=== PATIENT | female | born 1995 | race Asian ===

== ENCOUNTER 2017-08-15 18:16 | Observation (INO) | payer BC ==
[~2017-08-15] VITALS: Ht 157.5 cm; Wt 62.0 kg
[2017-08-15 19:04] LABS: BASOPHILS # (AUTO) 0.01 x10^3/uL (0-0.3); BASOPHILS % (AUTO) 0 % (0-1); EOSINOPHILS # (AUTO) 0.01 x10^3/uL (0-0.8); EOSINOPHILS % (AUTO) 0 % (1-7); LYMPHOCYTES # (AUTO) 1.65 x10^3/uL (1-6.1); LYMPHOCYTES % (AUTO) 22 % (22-44); MD NO; MEAN CORPUSCULAR HEMOGLOBIN 23.4 pg (27.0-34.8); MEAN CORPUSCULAR HGB CONC 31.6 g/dL (32.4-35.8); MEAN CORPUSCULAR VOLUME 74.1 fL (80-100); MEAN PLATELET VOLUME 10.5 fL (7.4-10.4); MONOCYTES # (AUTO) 0.53 x10^3/uL (0-1.4); MONOCYTES % (AUTO) 7 % (2-9); NEUTROPHILS # (AUTO) 5.31 x10^3/uL (1.8-8.0); NEUTROPHILS % (AUTO) 71 % (42-75); PLATELET COUNT 292 x10^3/uL (130-400); RED BLOOD COUNT 5.79 x10^6/uL (3.82-5.3); RED CELL DISTRIBUTION WIDTH 16.4 % (9.6-15.2)
[2017-08-15 19:09] LABS: MICROSCOPIC AUTO
[2017-08-15 19:16] LABS: ALANINE AMINOTRANSFERASE 14 U/L (12-78); ALBUMIN 4.3 g/dL (3.4-5.0); ANION GAP 9 mmol/L (5-15); CALCIUM 8.8 mg/dL (8.5-10.1); CHLORIDE 110 mmol/L (98-107); CREATININE 0.77 mg/dL (0.55-1.02)
[2017-08-15 19:17] LABS: SALICYLATE LEVEL < 1.7 mg/dL (2.8-20.0)
[2017-08-15 19:18] LABS: AMPHETAMINE SCREEN, URINE Negative (Negative); BARBITURATE SCREEN, URINE Negative (Negative); BENZODIAZEPINE SCREEN, URINE Negative (Negative); CANNABINOID SCREEN, URINE Positive (Negative); COCAINE SCREEN, URINE Negative (Negative); METHADONE SCREEN, URINE Negative (Negative); OPIATE SCREEN, URINE Negative (Negative)
[2017-08-15 19:19] LABS: ALKALINE PHOSPHATASE 41 U/L (45-117); BILIRUBIN,TOTAL 0.9 mg/dL (0.2-1.0); TOTAL PROTEIN 7.9 g/dL (6.4-8.2)
[2017-08-15 19:38] LABS: ACETAMINOPHEN < 2 mcg/mL (10-30)
[2017-08-15 19:38] LABS: CULTURE INDICATED? NO
[2017-08-15] MEDS ORDERED: SERT50TA PO (21:23)
[2017-08-15] MEDS ORDERED: BCP (21:23)
[2017-08-16] MEDS ORDERED: LORazepam 1MG TABLET PO PRN (00:30)
[2017-08-16] MEDS ORDERED: ONDANSETRON ODT 4 MG PO PRN (00:30)
[2017-08-16 00:56] LABS: TOTAL IRON BINDING CAPACITY 340 mcg/dL (250-450)
[2017-08-16 01:03] LABS: % IRON SATURATION 50 % (20-55); IRON LEVEL 171 mcg/dL (50-170)
[2017-08-16 07:30] VITALS: BP 109/68
[2017-08-16] MEDS ORDERED: SERTRALINE 50MG TABLET PO SCH (09:00)
[2017-08-16] MEDS ORDERED: SENNA/DOCUSATE TABLET PO SCH (09:00)
[2017-08-16] MEDS ORDERED: MICROGESTIN FE PO SCH (21:00)
== END 2017-08-16 11:45 ==
LOC: ED 22:17 → INTOOBSV 23:02 → EDIP 23:02 → 2N 08-16 01:19
PROVIDERS: ADMIT Hospitalist; ATTEND Hospitalist
DX: R45.851 Suicidal ideations (principal); F32.9 Major depressive disorder, single episode, unspecified; F41.9 Anxiety disorder, unspecified; F12.90 Cannabis use, unspecified, uncomplicated
CPT/HCPCS: 36415; 80053; 80307; 80329; 81001; 82728; 83540; 83550; 83690; 84702; 84703; 85025; 99285; G0378; G0480

== ENCOUNTER 2017-10-06 01:17 | Emergency (ER) | payer BC ==
[~2017-10-06] VITALS: Ht 157.5 cm; Wt 62.0 kg
[~2017-10-06 01:17] MED LIST: BCP; SERT50TA PO
[2017-10-06 03:39] LABS: BASOPHILS % (AUTO) 0 % (0-1); EOSINOPHILS # (AUTO) 0.01 x10^3/uL (0-0.8); EOSINOPHILS % (AUTO) 0 % (1-7); LYMPHOCYTES % (AUTO) 16 % (22-44); MD NO; MEAN CORPUSCULAR HEMOGLOBIN 23.5 pg (27.0-34.8); MEAN CORPUSCULAR HGB CONC 31.2 g/dL (32.4-35.8); MEAN CORPUSCULAR VOLUME 75.3 fL (80-100); MEAN PLATELET VOLUME 9.4 fL (7.4-10.4); MONOCYTES # (AUTO) 0.33 x10^3/uL (0-1.4); MONOCYTES % (AUTO) 5 % (2-9); NEUTROPHILS # (AUTO) 5.39 x10^3/uL (1.8-8.0); NEUTROPHILS % (AUTO) 79 % (42-75); PLATELET COUNT 289 x10^3/uL (130-400); RED BLOOD COUNT 5.13 x10^6/uL (3.82-5.3); RED CELL DISTRIBUTION WIDTH 16.6 % (9.6-15.2)
[2017-10-06 03:51] LABS: ALANINE AMINOTRANSFERASE 23 U/L (12-78); ALBUMIN 3.6 g/dL (3.4-5.0); ANION GAP 10 mmol/L (5-15); CALCIUM 7.3 mg/dL (8.5-10.1); CHLORIDE 113 mmol/L (98-107); CREATININE 0.85 mg/dL (0.55-1.02)
[2017-10-06 03:56] LABS: ALKALINE PHOSPHATASE 34 U/L (45-117); BILIRUBIN,TOTAL 0.3 mg/dL (0.2-1.0); TOTAL PROTEIN 6.9 g/dL (6.4-8.2)
[2017-10-06 05:38] LABS: AMPHETAMINE SCREEN, URINE Negative (Negative); BARBITURATE SCREEN, URINE Negative (Negative); BENZODIAZEPINE SCREEN, URINE Negative (Negative); CANNABINOID SCREEN, URINE Positive (Negative); COCAINE SCREEN, URINE Negative (Negative); METHADONE SCREEN, URINE Negative (Negative); OPIATE SCREEN, URINE Negative (Negative)
[2017-10-06 05:40] VITALS: BP 113/68
== END 2017-10-06 05:42 | disposition home or self-care (01) ==
LOC: ED 04:14
DX: F10.120 Alcohol abuse with intoxication, uncomplicated (principal); Z79.899 Other long term (current) drug therapy
CPT/HCPCS: 36415; 70450; 72125; 80053; 80307; 84703; 85025; 99285